=== PATIENT | male | born 1960 | race Hispanic/Latino ===

== ENCOUNTER 2018-05-13 13:45 | Emergency (ER) | payer SELFPAY ==
--- NOTE | 2018-05-13 14:12 | Emergency Department Report ---
ED General Adult HPI - General Stated complaint: NEEDLE STICK Time Seen by Provider: 05/13/18 13:54 - Related Data Previous Rx's Medication Instructions Recorded Last Taken Type Dolutegravir Sodium [Tivicay] 50 mg PO DAILY #30 tablet 05/13/18 Unknown Rx Emtricitabine/Tenofov Alafenam 1 each PO DAILY 30 Days #30 tablet 05/13/18 Unknown Rx [Descovy 200-25 mg Tablet] ED Review of Systems ROS: Stated complaint: NEEDLE STICK Other details as noted in HPI ED Past Medical Hx - Medications Home Medications: Home Medications Medication Instructions Recorded Confirmed Last Taken Type Dolutegravir Sodium [Tivicay] 50 mg PO DAILY #30 tablet 05/13/18 Unknown Rx Emtricitabine/Tenofov Alafenam 1 each PO DAILY 30 Days #30 tablet 05/13/18 Unknown Rx [Descovy 200-25 mg Tablet] Critical care attestation.: If time is entered above; I have spent that time in minutes in the direct care of this critically ill patient, excluding procedure time. ED Disposition Clinical Impression: Needle exposure, Needle stick injury Disposition: [id number] TO HOME OR SELFCARE Is pt being admited?: No Does the pt Need Aspirin: No Condition: Stable Instructions: Needle Stick Injuries (ED) Prescriptions: Dolutegravir Sodium [Tivicay] 50 mg PO DAILY #30 tablet Emtricitabine/Tenofov Alafenam [Descovy 200-25 mg Tablet] 1 each PO DAILY 30 Days #30 tablet
[2018-05-13] MEDS ORDERED: EMTRIVA PO ONE (14:30)
[2018-05-13] MEDS ORDERED: VIREAD PO ONE (14:30)
[2018-05-13] MEDS ORDERED: ISENTRESS PO ONE (14:30)
[2018-05-13 15:14] LABS: Alanine Aminotransferase 53 units/L (7-56); Albumin 4.6 g/dL (3.9-5); BUN/Creatinine Ratio 10; Blood Urea Nitrogen 8 mg/dL (9-20); Calcium 9.7 mg/dL (8.4-10.2); Hemolysis Index 4
[2018-05-14] MEDS ORDERED: EMTRIVA 200 MG, VIREAD 300 MG PO ONE (10:00)
== END 2018-05-13 15:00 | disposition home or self-care (01) ==
LOC: ED 13:45
DX: S61.432A Puncture wound without foreign body of left hand, initial encounter (principal); W22.8XXA Striking against or struck by other objects, initial encounter; Y93.89 Activity, other specified; Y92.89 Other specified places as the place of occurrence of the external cause; Y99.8 Other external cause status
CPT/HCPCS: 36415; 80053; 86706; 86803; 87517; 87806; 99282